=== PATIENT | female | born 1950 | race Two or more races ===

== ENCOUNTER 2021-01-02 13:15 | Emergency (ER) | payer MEDICAID ==
[~2021-01-02] VITALS: Ht 167.6 cm; Wt 105.0 kg
[2021-01-02] MEDS ORDERED: ACETAMINOPHEN 325MG TABLET PO ONE (14:15)
[2021-01-02 14:46] LABS: BASOPHILS % 0.7 % (0.0-2.0); EOSINOPHILS % 0.5 % (0.0-5.0); HEMATOCRIT. 37.4 % (36.0-48.0); LYMPHOCYTES % 38.4 % (20.0-50.0); MEAN CORPUSCULAR HEMOGLOBIN 24.5 pg (28.0-32.0); MEAN CORPUSCULAR VOLUME 76.6 fL (81.0-99.0); MEAN PLATELET VOLUME 9.1 fl (7.4-10.4); MONOCYTES % 7.4 % (2.0-8.0); PLATELET 225 x1000/uL (130-400); RED BLOOD CELL COUNT 4.88 mill/uL (4.2-5.4); RED CELL DISTRIBUTION WIDTH 19.3 % (11.6-14.6)
[2021-01-02 14:51] LABS: CHLORIDE 113 mEq/L (98-107)
[2021-01-02 16:09] LABS: CLARITY URINE CLEAR (CLEAR); COLOR URINE YELLOW (YELLOW); KETONES URINE NEGATIVE (NEGATIVE); LEUKOCYTE ESTERASE URINE NEGATIVE (NEGATIVE); NITRITE URINE NEGATIVE (NEGATIVE); OCCULT BLOOD URINE NEGATIVE (NEGATIVE); PROTEIN URINE NEGATIVE (NEGATIVE); SPECIFIC GRAVITY URINE 1.012 (1.005-1.030); UROBILINOGEN URINE 0.2 E.U./dL (0.2-1.0)
[2021-01-02] MEDS ORDERED: CEFTRIAXONE 2 G PREMIX 50 ML IV ONE (16:15)
[2021-01-02] MEDS ORDERED: AZITHROMYCIN 500 MG in DEXT 5% WATER 250 ML IV SCH (16:15)
[2021-01-02] MEDS ORDERED: LEVOFLOXACIN 500MG TABLET PO ONE (16:30)
[2021-01-02] MEDS ORDERED: LEVO500T89 MT (17:31)
[2021-01-02 18:00] VITALS: BP 138/70
== END 2021-01-02 18:56 | disposition home or self-care (01) ==
LOC: ER 13:15
DX: J18.9 Pneumonia, unspecified organism (principal); I48.91 Unspecified atrial fibrillation; F03.90 Unspecified dementia, unspecified severity, without behavioral disturbance, psychotic disturbance, mood disturbance, and anxiety; E11.9 Type 2 diabetes mellitus without complications; I10 Essential (primary) hypertension; Z86.73 Personal history of transient ischemic attack (TIA), and cerebral infarction without residual deficits; Z88.0 Allergy status to penicillin
CPT/HCPCS: 36415; 70450; 71045; 72125; 72170; 80048; 81003; 82140; 85025; 99285; J0456; J7060

== ENCOUNTER 2021-03-09 21:08 | Inpatient (IN) | payer MEDICAID, OTHER ==
[~2021-03-09] VITALS: Ht 180.3 cm; Wt 100.7 kg
[~2021-03-09 21:08] MED LIST: LEVO500T89 MT
[2021-03-09 22:10] LABS: BASOPHILS % 0.6 % (0.0-2.0); EOSINOPHILS % 0.5 % (0.0-5.0); HEMATOCRIT. 38.5 % (36.0-48.0); LYMPHOCYTES % 37.3 % (20.0-50.0); MEAN CORPUSCULAR HEMOGLOBIN 24.7 pg (28.0-32.0); MEAN CORPUSCULAR VOLUME 79.1 fL (81.0-99.0); MEAN PLATELET VOLUME 8.6 fl (7.4-10.4); MONOCYTES % 8.6 % (2.0-8.0); PLATELET 226 x1000/uL (130-400); RED BLOOD CELL COUNT 4.87 mill/uL (4.2-5.4); RED CELL DISTRIBUTION WIDTH 18.9 % (11.6-14.6)
[2021-03-09 22:11] LABS: CHLORIDE 109 mEq/L (98-107)
[2021-03-10] MEDS ORDERED: MAGNESIUM/ALUMINUM HYDROXIDE/SIMETHICONE 30ML UDC PO PRN (09:45)
[2021-03-10] MEDS ORDERED: DOCUSATE SODIUM 100MG CAPSULE PO PRN (09:45)
[2021-03-10] MEDS ORDERED: ACETAMINOPHEN 325MG TABLET PO PRN ×2 (09:45)
[2021-03-10] MEDS ORDERED: NITROGLYCERIN 0.4MG TABLET SL SL PRN (09:45)
[2021-03-10] MEDS ORDERED: IPRATROPIUM/ALBUTEROL 0.5-3(2.5)MG/3ML NEB NEB PRN (09:45)
[2021-03-10] MEDS ORDERED: GUAIFENESIN 200MG/10ML SUGAR FREE UDC PO PRN (09:45)
[2021-03-10] MEDS ORDERED: ONDANSETRON HCL 4MG/2ML INJ IV PRN (09:45)
[2021-03-10] MEDS ORDERED: CLONIDINE 0.1MG TABLET PO PRN (09:45)
[2021-03-10] MEDS ORDERED: CLOPIDOGREL 75MG TABLET PO SCH (10:30)
[2021-03-10] MEDS ORDERED: APIXABAN 5 MG TABLET PO SCH (10:30)
[2021-03-10] MEDS ORDERED: FAMOTIDINE 20MG TABLET PO SCH (10:30)
[2021-03-10 12:00] VITALS: BP 150/77
[2021-03-10] MEDS ORDERED: DILTIAZEM HCL 60MG TABLET PO SCH (12:00)
[2021-03-10] MEDS ORDERED: DABI150C PO (14:11)
[2021-03-10] MEDS ORDERED: AMLO2.5T45 PO (14:11)
[2021-03-10] MEDS ORDERED: NPH,100I SQ (14:11)
[2021-03-10] MEDS ORDERED: LIP40 PO (14:11)
[2021-03-10] MEDS ORDERED: CHLOROQUINE PO (14:11)
[2021-03-10] MEDS ORDERED: FURO-152 PO (14:11)
[2021-03-10] MEDS ORDERED: METF-414 PO (14:11)
[2021-03-10] MEDS ORDERED: SERT25TA PO (14:11)
[2021-03-10] MEDS ORDERED: DONE5TAB7 PO (14:11)
[2021-03-10 14:13] VITALS: BP 150/77
[2021-03-10] MEDS ORDERED: DEXTROSE 50% WATER 50ML SYRINGE IV PRN (15:45)
[2021-03-10] MEDS ORDERED: BLOOD SUGAR DIAGNOSTIC STRIP TEST SCH (17:10)
[2021-03-10] MEDS ORDERED: INSULIN LISPRO 100 UNITS/ML SUBCUT SCH (17:40)
[2021-03-10] MEDS ORDERED: ZOLPIDEM TARTRATE 5MG TABLET PO PRN (21:00)
== END 2021-03-10 17:40 | disposition left against medical advice (07) | DRG 312 ==
LOC: ER 21:08 → 8WST 03-10 04:33 → ENRESERV 03-10 07:36 → ER 03-10 12:03
PROVIDERS: ADMIT Internal Medicine; ATTEND Internal Medicine
DX: R55 Syncope and collapse (principal); G92.8 Other toxic encephalopathy; I48.91 Unspecified atrial fibrillation; E11.9 Type 2 diabetes mellitus without complications; F03.90 Unspecified dementia, unspecified severity, without behavioral disturbance, psychotic disturbance, mood disturbance, and anxiety; Z53.29 Procedure and treatment not carried out because of patient's decision for other reasons; I10 Essential (primary) hypertension; I69.320 Aphasia following cerebral infarction; Z88.1 Allergy status to other antibiotic agents
CPT/HCPCS: 36415; 71045; 80053; 84484; 85025; 93005; 93306; 93970; 99285

== ENCOUNTER 2021-07-17 17:07 | Emergency (ER) | payer OTHER ==
[~2021-07-17] VITALS: Ht 167.6 cm; Wt 129.2 kg
[~2021-07-17 17:07] MED LIST changes: +AMLO2.5T45 PO; +CHLOROQUINE PO; +DABI150C PO; +DONE5TAB7 PO; +FURO-152 PO; +LIP40 PO; +METF-414 PO; +NPH,100I SQ; +SERT25TA PO
[2021-07-17] MEDS ORDERED: IOHEXOL-350 100 ML BOTTLE ONE ×2 (17:48→22:44)
[2021-07-17 18:08] LABS: EOSINOPHILS % 0.5 % (0.0-5.0); HEMATOCRIT. 29.8 % (36.0-48.0); HEMOGLOBIN. 9.6 g/dL (12.0-16.0); LYMPHOCYTES % 31.5 % (20.0-50.0); MEAN CORPUSCULAR HEMOGLOBIN 24.3 pg (28.0-32.0); MEAN CORPUSCULAR VOLUME 75.3 fL (81.0-99.0); MEAN PLATELET VOLUME 8.4 fl (7.4-10.4); MONOCYTES % 10.1 % (2.0-8.0); NEUTROPHILS % 56.9 % (40.0-76.0); PLATELET 237 x1000/uL (130-400); RED BLOOD CELL COUNT 3.95 mill/uL (4.2-5.4); RED CELL DISTRIBUTION WIDTH 20.6 % (11.6-14.6)
[2021-07-17 18:43] LABS: CLARITY URINE CLEAR (CLEAR); COLOR URINE YELLOW (YELLOW); KETONES URINE NEGATIVE (NEGATIVE); LEUKOCYTE ESTERASE URINE NEGATIVE (NEGATIVE); NITRITE URINE NEGATIVE (NEGATIVE); OCCULT BLOOD URINE 1+ (NEGATIVE); PROTEIN URINE NEGATIVE (NEGATIVE); SPECIFIC GRAVITY URINE 1.027 (1.005-1.030); UROBILINOGEN URINE 0.2 E.U./dL (0.2-1.0)
[2021-07-17 19:00] LABS: *AMPHETAMINES SCREEN URINE NEGATIVE (NEGATIVE); *BARBITURATES SCREEN URINE NEGATIVE (NEGATIVE); *BENZODIAZEPINES SCREEN URINE NEGATIVE (NEGATIVE); *COCAINE SCREEN URINE NEGATIVE (NEGATIVE); METHADONE URINE SCREEN NEGATIVE (NEGATIVE)
[2021-07-17 19:01] LABS: CANNABINOID URINE SCREEN NEGATIVE (NEGATIVE); OPIATES URINE SCREEN NEGATIVE (NEGATIVE); PHENCYCLIDINE URINE SCREEN NEGATIVE (NEGATIVE)
[2021-07-17 20:28] LABS: CHLORIDE 112 mEq/L (98-107)
[2021-07-17 20:34] LABS: ETHANOL BLOOD < 10 mg/dL
[2021-07-17] MEDS ORDERED: ASPIRIN 325MG EC TABLET PO ONE (21:15)
[2021-07-17 23:54] VITALS: BP 154/93
== END 2021-07-18 00:38 | disposition short-term general hospital (02) ==
LOC: ER 17:07
DX: F03.90 Unspecified dementia, unspecified severity, without behavioral disturbance, psychotic disturbance, mood disturbance, and anxiety (principal); I65.23 Occlusion and stenosis of bilateral carotid arteries; G93.49 Other encephalopathy; I48.91 Unspecified atrial fibrillation; E11.9 Type 2 diabetes mellitus without complications; I10 Essential (primary) hypertension; Z86.73 Personal history of transient ischemic attack (TIA), and cerebral infarction without residual deficits; Z79.4 Long term (current) use of insulin; Z79.01 Long term (current) use of anticoagulants; Z88.0 Allergy status to penicillin
CPT/HCPCS: 36415; 70450; 70496; 70498; 71045; 80053; 80305; 80320; 81003; 82962; 83605; 83880; 84484; 85025; 87426; 93005; 99285; Q9967; G0480

== ENCOUNTER 2021-12-14 14:40 | Inpatient (IN) | payer OTHER ==
[~2021-12-14] VITALS: Ht 165.1 cm; Wt 101.6 kg
[~2021-12-14 14:40] MED LIST changes: -LEVO500T89 MT; +LEVO500T90 MT
[2021-12-14 17:10] LABS: BASOPHILS % 0.8 % (0.0-2.0); EOSINOPHILS % 0.1 % (0.0-5.0); HEMATOCRIT. 35.6 % (36.0-48.0); HEMOGLOBIN. 11.4 g/dL (12.0-16.0); LYMPHOCYTES % 18.3 % (20.0-50.0); MEAN CORPUSCULAR HEMOGLOBIN 25.1 pg (28.0-32.0); MEAN CORPUSCULAR VOLUME 78.6 fL (81.0-99.0); MEAN PLATELET VOLUME 8.7 fl (7.4-10.4); NEUTROPHILS % 74.8 % (40.0-76.0); PLATELET 263 x1000/uL (130-400); RED BLOOD CELL COUNT 4.53 mill/uL (4.2-5.4)
[2021-12-14 17:12] LABS: CHLORIDE 108 mEq/L (98-107)
[2021-12-14 17:16] LABS: INR 1.8; PROTHROMBIN TIME 18.9 sec (9.6-11.0)
[2021-12-14] MEDS ORDERED: CEFAZOLIN 1000MG PREMIX 50 ML IV ONE (22:30)
[2021-12-14] MEDS ORDERED: TETANUS, DIPHTHERIA, PERTUSSIS VAC/PF 0.5ML (>10YR OLD) IM ONE (23:15)
[2021-12-15 10:00] VITALS: BP 128/64
[2021-12-15] MEDS ORDERED: DOCUSATE SODIUM 100MG CAPSULE PO PRN (11:30)
[2021-12-15] MEDS ORDERED: ACETAMINOPHEN 325MG TABLET PO PRN (11:30)
[2021-12-15] MEDS ORDERED: HYDROCODONE/ACETAMINOPHEN 5/325MG TABLET PO PRN (11:30)
[2021-12-15] MEDS ORDERED: ONDANSETRON HCL 4MG/2ML INJ IV PRN (11:30)
[2021-12-15] MEDS ORDERED: TRAMADOL 50MG TABLET PO PRN (11:30)
[2021-12-15] MEDS ORDERED: ENOXAPARIN 40MG/0.4ML SYR SUBCUT SCH (11:30)
[2021-12-15] MEDS ORDERED: GUAIFENESIN 200MG/10ML SUGAR FREE UDC PO PRN (11:30)
[2021-12-15] MEDS ORDERED: MAGNESIUM/ALUMINUM HYDROXIDE/SIMETHICONE 30ML UDC PO PRN (11:30)
[2021-12-15 12:00] VITALS: BP 134/82
[2021-12-15] MEDS ORDERED: LIDOCAINE HCL 1% 20ML VIAL (Pyxis) INJ INFIL SCH (12:30)
[2021-12-15] MEDS ORDERED: NALOXONE HCL 0.4MG/ML VIAL IV PRN (13:30)
[2021-12-15] MEDS: ENOXAPARIN 30MG/0.3ML SYR SUBCUT SCH ×2 (13:45→22:24)
[2021-12-15] MEDS ORDERED: DEXTROSE 50% WATER 50ML SYRINGE IV PRN (14:30)
[2021-12-15] MEDS: SULFAMETHOXAZOLE/TRIMETHOPRIM 400/80MG TAB PO SCH ×2 (16:08→21:54)
[2021-12-15] MEDS ORDERED: GLIP1TAB4 PO (17:46)
[2021-12-15] MEDS: BLOOD SUGAR DIAGNOSTIC STRIP TEST SCH ×2 (17:49→21:54)
[2021-12-15] MEDS: INSULIN LISPRO 100 UNITS/ML SUBCUT SCH ×2 (17:50→21:58)
[2021-12-15 20:00] VITALS: BP 146/89
[2021-12-16] VITALS: BP 155/83
[2021-12-16 04:00] VITALS: BP 158/83
[2021-12-16] MEDS: BLOOD SUGAR DIAGNOSTIC STRIP TEST SCH (06:42)
[2021-12-16 07:48] VITALS: BP 115/79
[2021-12-16] MEDS: INSULIN LISPRO 100 UNITS/ML SUBCUT SCH (07:50)
[2021-12-16 07:53] LABS: BASOPHILS % 0.6 % (0.0-2.0); EOSINOPHILS % 0.5 % (0.0-5.0); HEMATOCRIT. 34.5 % (36.0-48.0); HEMOGLOBIN. 11.3 g/dL (12.0-16.0); MEAN CORPUSCULAR HEMOGLOBIN 25.3 pg (28.0-32.0); MEAN CORPUSCULAR VOLUME 77.5 fL (81.0-99.0); MEAN PLATELET VOLUME 9.1 fl (7.4-10.4); NEUTROPHILS % 54.9 % (40.0-76.0); PLATELET 231 x1000/uL (130-400); RED BLOOD CELL COUNT 4.45 mill/uL (4.2-5.4); RED CELL DISTRIBUTION WIDTH 20.2 % (11.6-14.6)
[2021-12-16 07:55] LABS: CHLORIDE 110 mEq/L (98-107)
[2021-12-16 08:06] LABS: HDL CHOLESTEROL 30 mg/dL (40-59); LDL CHOLESTEROL 65 mg/dL (5-100)
[2021-12-16] MEDS: SULFAMETHOXAZOLE/TRIMETHOPRIM 400/80MG TAB PO SCH (09:48)
[2021-12-16] MEDS: ENOXAPARIN 30MG/0.3ML SYR SUBCUT SCH (09:49)
== END 2021-12-16 16:45 | disposition home or self-care (01) | DRG 982 ==
LOC: ER 14:40 → EDBEDREQ 15:26 → EDBEDREQTM 15:26 → 6WST 12-15 05:05 → EDBEDREQTM 12-15 05:10 → EDBEDREQ 12-15 05:10 → EDBEDREQDT 12-15 05:10 → ENRESERV 12-15 08:40
PROVIDERS: ADMIT Hospitalist; ATTEND Hospitalist
PROC: 0HQMXZZ Repair Right Foot Skin, External Approach (ICD-10-PCS; principal; 2021-12-15)
PROC: 0YQTXZZ Repair Right 3rd Toe, External Approach (ICD-10-PCS; 2021-12-15)
PROC: 0YQYXZZ Repair Left 5th Toe, External Approach (ICD-10-PCS; 2021-12-15)
DX: S91.114A Laceration without foreign body of right lesser toe(s) without damage to nail, initial encounter (principal); N39.0 Urinary tract infection, site not specified; R55 Syncope and collapse; S91.311A Laceration without foreign body, right foot, initial encounter; I48.91 Unspecified atrial fibrillation; F03.90 Unspecified dementia, unspecified severity, without behavioral disturbance, psychotic disturbance, mood disturbance, and anxiety; E11.9 Type 2 diabetes mellitus without complications; Z20.822 Contact with and (suspected) exposure to COVID-19; I10 Essential (primary) hypertension; F17.200 Nicotine dependence, unspecified, uncomplicated; Z88.8 Allergy status to other drugs, medicaments and biological substances; Z79.899 Other long term (current) drug therapy; W07.XXXA Fall from chair, initial encounter; Y93.89 Activity, other specified; Y92.89 Other specified places as the place of occurrence of the external cause; Y99.8 Other external cause status; I69.920 Aphasia following unspecified cerebrovascular disease
CPT/HCPCS: 36415; 71045; 73630; 80053; 80061; 82962; 83036; 83880; 84484; 85025; 87426; 93005; 93970; 97162; 99285; J0690; J1650; J1815; J3490

== ENCOUNTER 2022-01-24 00:17 | Emergency (ER) | payer MEDICARE, OTHER ==
[~2022-01-24] VITALS: Ht 177.8 cm; Wt 94.0 kg
[~2022-01-24 00:17] MED LIST changes: -AMLO2.5T45 PO; +GLIP1TAB4 PO; -METF-414 PO; -NPH,100I SQ
[2022-01-24 00:59] LABS: BASOPHILS % 0.4 % (0.0-2.0); HEMATOCRIT. 35.3 % (36.0-48.0); HEMOGLOBIN. 11.2 g/dL (12.0-16.0); LYMPHOCYTES % 35.6 % (20.0-50.0); MEAN CORPUSCULAR HEMOGLOBIN 25.5 pg (28.0-32.0); MEAN CORPUSCULAR VOLUME 80.2 fL (81.0-99.0); MEAN PLATELET VOLUME 8.6 fl (7.4-10.4); MONOCYTES % 5.1 % (2.0-8.0); NEUTROPHILS % 58.9 % (40.0-76.0); PLATELET 251 x1000/uL (130-400); RED CELL DISTRIBUTION WIDTH 19.1 % (11.6-14.6)
[2022-01-24 01:13] LABS: CHLORIDE 109 mEq/L (98-107)
[2022-01-24 01:27] LABS: ETHANOL BLOOD < 10 mg/dL
[2022-01-24] MEDS ORDERED: IOHEXOL-350 100 ML BOTTLE ONE (03:07)
[2022-01-24 08:00] VITALS: BP 130/76
== END 2022-01-24 08:41 | disposition short-term general hospital (02) ==
LOC: ER 00:17 → EDBEDREQSVC 02:01 → EDBEDREQTM 02:01 → EDBEDREQ 02:01 → ER 08:41 → CANBEDREQ 11:27
DX: G45.9 Transient cerebral ischemic attack, unspecified (principal); D64.9 Anemia, unspecified; I48.91 Unspecified atrial fibrillation; F03.90 Unspecified dementia, unspecified severity, without behavioral disturbance, psychotic disturbance, mood disturbance, and anxiety; E11.9 Type 2 diabetes mellitus without complications; I10 Essential (primary) hypertension
CPT/HCPCS: 36415; 70450; 70496; 70498; 71045; 80053; 80320; 85025; 93005; 99291; Q9967; G0480

== ENCOUNTER 2022-01-31 11:04 | Emergency (ER) | payer OTHER ==
[~2022-01-31] VITALS: Ht 182.9 cm; Wt 109.0 kg
[2022-01-31 12:47] LABS: BASOPHILS % 0.5 % (0.0-2.0); EOSINOPHILS % 0.1 % (0.0-5.0); HEMATOCRIT. 34.6 % (36.0-48.0); HEMOGLOBIN. 11.1 g/dL (12.0-16.0); LYMPHOCYTES % 24.3 % (20.0-50.0); MEAN CORPUSCULAR HEMOGLOBIN 25.4 pg (28.0-32.0); MEAN CORPUSCULAR VOLUME 79.1 fL (81.0-99.0); MEAN PLATELET VOLUME 8.6 fl (7.4-10.4); MONOCYTES % 10.3 % (2.0-8.0); NEUTROPHILS % 64.8 % (40.0-76.0); PLATELET 238 x1000/uL (130-400); RED BLOOD CELL COUNT 4.37 mill/uL (4.2-5.4); RED CELL DISTRIBUTION WIDTH 18.6 % (11.6-14.6)
[2022-01-31 12:54] LABS: CHLORIDE 111 mEq/L (98-107)
[2022-01-31 13:02] LABS: ETHANOL BLOOD < 10 mg/dL
[2022-01-31 14:35] VITALS: BP 142/79
[2022-01-31] MEDS ORDERED: FUROSEMIDE 20MG/2ML VIAL IVP ONE (16:00)
== END 2022-01-31 20:00 | disposition home or self-care (01) ==
LOC: ER 11:04 → CANBEDREQ 17:57 → ER 20:00
DX: F03.90 Unspecified dementia, unspecified severity, without behavioral disturbance, psychotic disturbance, mood disturbance, and anxiety (principal); I48.91 Unspecified atrial fibrillation; E11.9 Type 2 diabetes mellitus without complications; I10 Essential (primary) hypertension; Z86.73 Personal history of transient ischemic attack (TIA), and cerebral infarction without residual deficits; Z79.899 Other long term (current) drug therapy
CPT/HCPCS: 36415; 70450; 71045; 80053; 80320; 82140; 82962; 83735; 83880; 84484; 85025; 93005; 96374; 99285; J1940; G0480